=== PATIENT | female | born 1945 | race Caucasian/White ===

== ENCOUNTER 2020-08-16 15:11 | Emergency (ER) | payer OTHER ==
[~2020-08-16] VITALS: Ht 162.6 cm; Wt 59.0 kg
[~2020-08-16 15:11] MED LIST: ANALGESIC325 MG PO; PRILOSEC40 MG PO; SYNTHROID
--- NOTE | 2020-08-16 16:06 | EKG ---
[address] [address] ELECTROCARDIOGRAM REPORT Name: DANIELLESARAH ASMPSON Room #: [facility].R.#: [id number] Admission: Attend Phys: Discharge: Date of : 45 Report #: [id number] [facility] ED Test Date: 2020-08-16 Test Time: 15:42:22 Pat Name: SARAH SANTOS Department: Room: Gender: F Rn Diabetes: CHARLES AGUILERA : 1945 Requested By: Dajuan Richards Order Number: [id number] MD: Celestine Roche Measurements Intervals [place] Rate: 82 P: 60 MN: 200 QRS: 11 QRSD: 77 T: 50 QT: 351 QTc: 410 Interpretive Statements Sinus rhythm Compared to ECG 04/05/2009 12:34:35 No significant changes Electronically Signed On 08-16-2020 16:06:20 CDT by Celestine Roche [email or web address] <ELECTRONICALLY SIGNED> By: Celestine Roche MD, [facility] 08/16/20 1606 [id number] Celestine Roche MD, FACC /EPI
[2020-08-16 16:20] LABS: ANION GAP 7 mmol/L (7-16); BUN 13 mg/dL (7-18); CALCIUM 9.5 mg/dL (8.5-10.1); CHLORIDE 102 mmol/L (98-107); CO2 29 mmol/L (21-32); CREATININE 0.7 mg/dL (0.6-1.0); GLUCOSE 102 mg/dL (74-106); POTASSIUM 4.5 mmol/L (3.5-5.1); SODIUM 138 mmol/L (136-145)
[2020-08-16] MEDS ORDERED: CALCIUM500 MG PO (16:21)
[2020-08-16 16:23] LABS: ABSOLUTE NEUTROPHILS 2.3 thou/uL (1.4-8.2); APTT 24.8 Seconds (24.5-32.8); BASOPHILS 4.8 % (0.0-2.0); EOSINOPHILS 8.1 % (0.0-3.0); HEMATOCRIT 34.7 % (37.0-47.0); HEMOGLOBIN 11.5 gm/dL (12.0-15.0); LYMPHOCYTES 23.6 % (24.0-44.0); MCHC 33.1 g/dL (28.0-37.0); MCV 93.6 fL (80.0-100.0); POLYS 55.5 % (36.0-66.0); PROTIME 10.9 Seconds (10.5-12.1); RBC 3.71 mil/uL (4.20-5.00); RDW 13.8 % (10.5-14.5); WBC 4.2 thou/uL (4.0-11.0)
[2020-08-16 16:30] LABS: ALBUMIN 3.5 g/dL (3.4-5.0); SGOT 20 U/L (15-37); SGPT 25 U/L (14-59); TOTAL BILIRUBIN 0.2 mg/dL (0.2-1.0); TOTAL PROTEIN 6.3 g/dL (6.4-8.2); TROPONIN-I <0.06 ng/mL (<0.06)
[2020-08-16 17:19] LABS: PLATELET COUNT 160 thou/uL (150-400)
[2020-08-16 18:35] VITALS: BP 133/88
== END 2020-08-16 18:35 | disposition home or self-care (01) ==
LOC: ER 15:11
PROVIDERS: Emergency Medicine
DX: R42 Dizziness and giddiness (principal); R51.9 Headache, unspecified; E03.9 Hypothyroidism, unspecified; E04.1 Nontoxic single thyroid nodule; Z88.8 Allergy status to other drugs, medicaments and biological substances; Z79.82 Long term (current) use of aspirin; Z79.899 Other long term (current) drug therapy